=== PATIENT | female | born 1990 | race African-American/Black ===

== ENCOUNTER 2016-11-20 12:19 | Emergency (ER) | payer OTHER ==
[~2016-11-20] VITALS: Ht 157.5 cm; Wt 78.5 kg
[2016-11-20 12:19] VITALS: BP 114/72
[2016-11-20] MEDS ORDERED: SPRI28TA PO (12:29)
[2016-11-20] MEDS ORDERED: MOBI7.5T10 PO (13:24)
[2016-11-20] MEDS ORDERED: ZANA4TAB PO (13:24)
[2016-11-20] MEDS ORDERED: GENTAMICIN 0.3% OPHTH SOL 5 ML BTL OS ONE (14:00)
== END 2016-11-20 13:54 | disposition home or self-care (01) ==
LOC: M ED 13:53
DX: M54.6 Pain in thoracic spine (principal); Z79.899 Other long term (current) drug therapy

== ENCOUNTER → 2017-08-28 | Outpatient (CLI) | payer OTHER | LOC: M LRY 12:15 | DX: M79.622 Pain in left upper arm (principal) ==